=== PATIENT | male | born 1945 | race Caucasian/White ===

== ENCOUNTER 2017-04-20 10:21 | Inpatient (IN) | payer MEDICAID, MEDICARE, OTHER ==
[2017-04-19 14:39] VITALS: BMI 28.0
[~2017-04-20] VITALS: Ht 172.7 cm; Wt 89.0 kg
[2017-04-20] VITALS (18 sets, daily range): BP systolic 95–135; BP diastolic 45–71; PULSE 64–86; RESP 13–20; Ht 172.7 cm; Wt 89.0 kg
[~2017-04-20 10:21] MED LIST: CEFTRIAXONE 1 GM/NS 50 ML IVPB SCH; EPHEDrine SULFATE 50 MG/5 ML SYG ONE; GLYCOPYRROLATE 0.4 MG INJ ONE
[2017-04-20] MEDS ORDERED: ATOR10TA65 PO (11:26)
[2017-04-20] MEDS ORDERED: GLIP5TAB13 PO (11:26)
[2017-04-20] MEDS ORDERED: AMLO-147 PO (11:26)
[2017-04-20] MEDS ORDERED: SITA100T8 PO (11:26)
[2017-04-20] MEDS ORDERED: PANT40TA3 PO (11:26)
[2017-04-20] MEDS ORDERED: TAMS0.4C2 PO (11:26)
[2017-04-20] MEDS ORDERED: ASPI81TA3 PO (11:26)
[2017-04-20] MEDS ORDERED: LISI40TA9 PO (11:26)
[2017-04-20] MEDS ORDERED: ATEN-51 PO (11:26)
--- NOTE | 2017-04-20 12:11 | HPN ---
Date/Time of Note Date/Time of Note DATE: 04/20/17 TIME: 12:11 Interval H&P Admission Note Pt. seen H&P reviewed: No system changes GHAZALA ARIAS MD Apr 20, 2017 12:11
[2017-04-20] MEDS ORDERED: PROPOFOL 20 ML ONE (12:15)
[2017-04-20] MEDS ORDERED: LIDOCAINE 2% (SDV) 5 ML INJ ONE (12:15)
[2017-04-20] MEDS ORDERED: MIDAZOLAM 1 MG/ML 2 ML INJ ONE (12:16)
[2017-04-20] MEDS ORDERED: FENTAnyl 50 MCG/ML VIAL ONE (12:16)
[2017-04-20] MEDS ORDERED: DEXAMETHASONE 4 MG/ML 1 ML INJ ONE (12:34)
[2017-04-20] MEDS ORDERED: METOCLOPRAMIDE 10 MG INJ ONE (12:34)
[2017-04-20] MEDS ORDERED: ONDANSETRON 4 MG INJ ONE (12:34)
[2017-04-20] MEDS ORDERED: FAMOTIDINE 20 MG INJ ONE (12:34)
[2017-04-20] MEDS ORDERED: VASOPRESSIN 20 UNITS INJ ONE (12:46)
[2017-04-20] MEDS ORDERED: DIPHENHYDRAMINE 50 MG INJ IV PRN (13:30)
[2017-04-20] MEDS ORDERED: FENTAnyl 50 MCG/ML VIAL IV PRN ×3 (13:30)
[2017-04-20] MEDS ORDERED: OXYCODONE/ACETAMINOPHEN (5/325) TAB PO PRN ×2 (13:30)
[2017-04-20] MEDS ORDERED: MEPERIDINE 25 MG INJ IV PRN (13:30)
[2017-04-20] MEDS ORDERED: METOCLOPRAMIDE 10 MG INJ IV PRN (13:30)
[2017-04-20] MEDS ORDERED: LABETALOL HCL 20MG INJ IV PRN (13:30)
[2017-04-20] MEDS ORDERED: ONDANSETRON 4 MG INJ IV PRN (13:30)
--- NOTE | 2017-04-20 14:25 | OPR ---
Date/Time of Note Date/Time of Note DATE: 04/20/17 TIME: 14:20 Operative Report Procedure Date: Apr 20, 2017 Preoperative Diagnosis Benign prostatic hypertrophy with urinary retention and urinary tract infection Postoperative Diagnosis Benign prostatic hypertrophy with urinary retention and urinary tract infection. Pending pathology report Operation/Procedure Performed Transurethral resection of the prostate Surgeon see signature line Liquor Commissioner None Anesthesia Type: general Anesthesiologist: MANNIE LEE Estimated Blood Loss: 100 - 150 ml's Transfusion none Specimen Prostatic tissue Grafts/Implants none Tubes/Drains 24 Colombian three-way Hankins catheter Complications none Pt Condition Post Procedure: stable Disposition: PACU Indications Urinary retention, benign prostatic hypertrophy with obstruction and urinary tract infection Procedure Description The patient was brought to the operating room general anesthesia was induced. Timeout was done the patient was identified by his name birthdate and the procedure. The patient was given 1 g of ceftriaxone IV at the start of the procedure. The genital area was then prepped and draped in the usual sterile manner. cystoscopy was done was a 22 Colombian cystoscope and it showed prostatic enlargement with obstruction, the bladder was trabeculated and had a lot of cellular and diverticular formations. there was no bladder tumors or stones. The cystoscope was then removed and the urethra was dilated with a Margarito dilators up to #30 Colombian. The 26 Colombian bipolar resectoscope sheath was then introduced under direct vision through the penile urethra all the way to the bladder. Then the resection of the prostate was started ,first the median lobe was resected then the right lateral lobe then the left lateral lobe and finally the anterior lobe as well as apical tissue. All the bleeders were electrocoagulated, all the prostatic chips were evacuated, good hemostasis was obtained. The ureteral orifices as well as external sphincter were intact and safeguarded during the whole procedure. At the end of the procedure the resectoscope was removed and #24 Colombian three-way Hankins catheter was inserted into the bladder the balloon was inflated with 60 mL of sterile water the catheter was connected to a drainage bag and continuous bladder irrigation was started in the operating room with normal saline. The patient was transferred to the recovery room in stable and satisfactory condition. GHAZALA ARIAS MD Apr 20, 2017 14:25
--- NOTE | 2017-04-20 16:03 | CONS ---
Date/Time of Note Date/Time of Note DATE: 04/20/17 TIME: 15:57 Assessment/Plan Assessment/Plan Chief Complaint/Hosp Course 71 yo M present for elective TURP secondary to BPH with MDR Ecoli UTI Problems: Additional Assessment/Plan 1. Urinary tract infection - Patient noted to have MDR Ecoli UTI on urine cultures obtained as outpatient at Dr. Camarena's office - Sensitive to Ceftriaxone and will need to continue Ceftriaxone 1gm q24hr for 7 days. Will consult CM to arrange for HH and IV antibiotics - Will need to place a midline prior to discharge - Denies any symptoms at this time 2. HTN - stable - home medications resumed 3. DM - continue glipizide - resume Januvia upon discharge - ISS and accuchecks 4. BPH s/p TURP - management per Primary team 5. GERD - continue on PPI 6. Disposition - CM consulted to arrange for HH for IV antibiotics Thank you for this consultation. Please contact with any questions Consultation Date/Type/Reason Admit Date/Time Apr 20, 2017 at 10:21 Date of Consultation: Apr 20, 2017 Reason for Consultation medication management Hx of Present Illness 71 yo M with pMH HT, DM, HLD, BPH, and GERD presented for elective TURP secondary to BPH. Patient was found to have MDR Ecoli sensitive to Ceftriaxone and Imipenem on urine cultures performed as an outpatient at Dr. Camarena's office. Medicine consultation was placed for assistance setting up IV antibiotics as an outpatient. Patient was interviewed in the recovery room and denies any chest pain, shortness of breath, nausea, vomiting. abdominal pain, blood in urine, or rectal pain. All 12 systems reviewed and pertinent positives as per HPI. all others negative Constitutional: No chills, No diaphoresis, No febrile Eyes: No discharge, No redness ENT: No congestion, No discharge Respiratory: No cough, No shortness of breath, No sputum, No wheezing Cardiovascular: No chest pain, No edema, No lightheadedness, No palpitations Gastrointestinal: No constipation, No diarrhea, No nausea, No pain, No vomiting Genitourinary: No bleeding, No flank pain, No hematuria Musculoskeletal: No back pain, No swelling Skin: No erythema, No pruritis, No rash Neurologic: No confusion, No focal-weakness, No headache Endocrine: no complaints Lymphatic: no complaints Psychological: nl mood/affect Immunologic: no complaints Past Medical History Medical History: diabetes, GERD, high cholesterol, hypertension, other (BPH) Past Surgical History Past Surgical Hx: other (TURP, neck tumor ) Family History Significant Family History: no pertinent family hx Social History Alcohol Use: none Smoking Status: Former smoker Drug Use: none Exam/Review of Systems Vital Signs Vitals Vital Signs Date Time Temp Pulse Resp B/P Pulse Ox O2 Delivery O2 Flow Rate FiO2 04/20/17 14:59 78 14 107/45 95 Nasal Cannula 4.0 04/20/17 14:16 97.9 Exam Constitutional: alert, oriented, well developed, No distress Psych: nl mood/affect Head: atraumatic, normocephalic Eyes: EOMI, PERRL, nl sclera ENMT: mucosa pink and moist Neck: non-tender, supple Respiratory: clear to auscultation, No crackles/rales, No diminished breath sounds, No labored breathing, No wheezing Cardiovascular: regular rate and rhythm, No edema, No irregular rhythm, No murmurs/extra sounds, No systolic murmur Gastrointestinal: bowel sounds, non-tender, soft, No distended, No rebound or guarding Genitourinary - Male: No discharge Musculoskeletal: nl extremities to inspection Extremities: normal pulses 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: 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, nl mental status, nl speech Skin: nl turgor Lymph: nl lymph nodes Results Results 24 hrs Laboratory Tests Test 04/20/17 10:59 Bedside Glucose 98 Medications Medications Current Medications Dextrose/Sodium Chloride 1,000 ml @ 50 mls/hr Q20H IV ; Start 04/20/17 at 14: 13 Ceftriaxone Sodium (Rocephin) 50 ml @ 100 mls/hr Q24H IVPB ; Start 04/21/17 at 12:30 Amlodipine Besylate (Norvasc) 10 mg DAILY PO ; Start 04/21/17 at 09:00; Status UNV Atenolol (Tenormin) 25 mg DAILY PO ; Start 04/21/17 at 09:00; Status UNV Atorvastatin Calcium (Lipitor) 10 mg QHS PO ; Start 04/20/17 at 21:00; Status UNV Glipizide (Glucotrol) 5 mg DAILY PO ; Start 04/21/17 at 09:00; Status UNV Lisinopril (Zestril) 40 mg DAILY PO ; Start 04/21/17 at 09:00; Status UNV Pantoprazole (Protonix Tab) 40 mg DAILY PO ; Start 04/21/17 at 09:00; Status UNV Tamsulosin HCl (Flomax) 0.4 mg DAILY PO ; Start 04/21/17 at 09:00; Status UNV Procedures Procedures s/p STEPHANIE BAPTISTE MD Apr 20, 2017 16:03
[2017-04-20] MEDS: DEXTROSE 5%-0.45% NACL 1,000 ML IV SCH (16:59)
[2017-04-20] MEDS ORDERED: DEXTROSE 50% 50 ML SYRINGE IV PRN ×2 (17:00)
[2017-04-20] MEDS ORDERED: GLUCOSE GEL 15 GRAM TUBE PO PRN ×2 (17:00)
[2017-04-20] MEDS ORDERED: GLUCOSE GEL 15 GRAM TUBE BUCCAL PRN (17:00)
[2017-04-20] MEDS ORDERED: GLUCAGON 1 MG INJ IM PRN (17:00)
[2017-04-20] MEDS: INSULIN ASPART [NOVOLOG] 3 ML PEN SC SCH ×2 (17:59→21:00)
[2017-04-20] MEDS ORDERED: ATORVASTATIN 10 MG TAB PO SCH (21:00)
[2017-04-20] MEDS ORDERED: TAMSULOSIN (SR) 0.4 MG CAP PO SCH (21:00)
[2017-04-21 00:31] VITALS: BP 119/75; RESP 19
[2017-04-21 05:00] VITALS: BP 129/67; PULSE 74; RESP 18
[2017-04-21 05:30] LABS: BASOPHILS % 0.2 % (0.0-2.0); EOSINOPHILS % 0.1 % (0.0-7.0); HEMATOCRIT 29.4 % (42.0-52.0); HEMOGLOBIN 9.7 g/dl (14.0-18.0); LYMPHOCYTES # 0.9 10^3/ul (0.8-2.9); LYMPHOCYTES % 8.1 % (15.0-51.0); MEAN CORPUSCULAR VOLUME 84.7 fl (82.0-101.0); MEAN PLATELET VOLUME 10.3 fl (7.4-10.4); MONOCYTE # 0.9 10^3/ul (0.3-0.9); MONOCYTES % 7.7 % (0.0-11.0); NEUTROPHIL # 9.4 10^3/ul (1.6-7.5); NEUTROPHILS % 83.4 % (39.0-77.0); PLATELET COUNT 254 10^3/UL (140-415); RED BLOOD COUNT 3.47 10^6/ul (4.70-6.10); RED CELL DISTRIBUTION WIDTH 14.2 % (11.5-14.5); WHITE BLOOD COUNT 11.3 10^3/ul (4.8-10.8)
[2017-04-21] MEDS ORDERED: PANTOPRAZOLE (EC) 40 MG TAB PO SCH (06:00)
[2017-04-21] MEDS: INSULIN ASPART [NOVOLOG] 3 ML PEN SC SCH ×2 (07:50→11:40)
[2017-04-21] MEDS ORDERED: MAGNESIUM HYDROXIDE 30ML CUP PO PRN (08:00)
[2017-04-21 08:08] VITALS: BP 112/58; RESP 18
--- NOTE | 2017-04-21 08:54 | CONS ---
Date/Time of Note Date/Time of Note DATE: 04/21/17 TIME: 08:53 Assessment/Plan Assessment/Plan Chief Complaint/Hosp Course 71 yo M present for elective TURP secondary to BPH with MDR Ecoli UTI Problems: Additional Assessment/Plan 1. Urinary tract infection - Spoke with CM and will work on arranging HH for IV antibiotics. If able to arrange for tomorrow, will be stable for discharge after dose of antibiotics today - Patient noted to have MDR Ecoli UTI on urine cultures obtained as outpatient at Dr. Camarena's office - Sensitive to Ceftriaxone and will need to continue Ceftriaxone 1gm q24hr for 6 more days. - Will need to place a midline prior to discharge - Denies any symptoms at this time 2. HTN - stable - continue home medications 3. DM - well controlled - continue glipizide - resume Januvia upon discharge - ISS and accuchecks 4. BPH s/p TURP - management per Primary team 5. GERD - continue on PPI 6. Disposition - Spoke with daughter at bedside about plan - CM working on HH for IV antibiotics - Will have midline placed when able by ED since will only need short term IV therapy Consultation Date/Type/Reason Admit Date/Time Apr 20, 2017 at 10:21 Initial Consult Date 04/20/17 Reason for Consultation medication management Exam/Review of Systems Vital Signs Vitals Vital Signs Date Time Temp Pulse Resp B/P Pulse Ox O2 Delivery O2 Flow Rate FiO2 04/21/17 08:08 98.1 72 18 112/58 95 04/21/17 05:00 Nasal Cannula 2.0 Intake and Output 04/20/17 04/20/17 04/21/17 15:00 23:00 07:00 Intake Total 1300 ml 3370 ml 05827 ml Output Total 50 ml 2100 ml 750 ml Balance 1250 ml 1270 ml 40348 ml Exam Constitutional: alert, oriented, well developed, No distress Neck: non-tender, supple Respiratory: clear to auscultation, No crackles/rales, No diminished breath sounds, No labored breathing, No wheezing Cardiovascular: regular rate and rhythm, No edema, No irregular rhythm, No murmurs/extra sounds, No systolic murmur Gastrointestinal: bowel sounds, non-tender, soft, No distended, No rebound or guarding Musculoskeletal: nl extremities to inspection Extremities: normal pulses 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: 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 intact, nl mental status, nl speech Results Result Diagram: 04/21/17 0432 Results 24 hrs Laboratory Tests Test 04/20/17 10:59 04/20/17 17:45 04/20/17 20:54 04/21/17 02:40 Bedside Glucose 98 164 253 H 144 Test 04/21/17 04:32 White Blood Count 11.3 H Red Blood Count 3.47 L Hemoglobin 9.7 L Hematocrit 29.4 L Mean Corpuscular Volume 84.7 Mean Corpuscular Hemoglobin 28.0 L Mean Corpuscular Hemoglobin Concent 33.0 Red Cell Distribution Width 14.2 Platelet Count 254 Mean Platelet Volume 10.3 Neutrophils % 83.4 H Lymphocytes % 8.1 L Monocytes % 7.7 Eosinophils % 0.1 Basophils % 0.2 Nucleated Red Blood Cells % 0.0 Neutrophils # 9.4 H Lymphocytes # 0.9 Monocytes # 0.9 Eosinophils # 0.0 Basophils # 0.0 Nucleated Red Blood Cells # 0.0 Medications Medications Current Medications Dextrose/Sodium Chloride 1,000 ml @ 50 mls/hr Q20H IV Last administered on 16:59; Admin Dose 50 MLS/HR; Start 04/20/17 at 14:13 Ceftriaxone Sodium (Rocephin) 50 ml @ 100 mls/hr Q24H IVPB ; Start 04/21/17 at 12:30 Amlodipine Besylate (Norvasc) 10 mg DAILY PO Last administered on 04/21/17 08 :31; Admin Dose 10 MG; Start 04/21/17 at 09:00 Atenolol (Tenormin) 25 mg DAILY PO Last administered on 04/21/17 08:31; Admin Dose 25 MG; Start 04/21/17 at 09:00 Atorvastatin Calcium (Lipitor) 10 mg QHS PO Last administered on 04/20/17 20: 58; Admin Dose 10 MG; Start 04/20/17 at 21:00 Lisinopril (Zestril) 40 mg DAILY PO Last administered on 04/21/17 08:32; Admin Dose 40 MG; Start 04/21/17 at 09:00 Pantoprazole (Protonix Tab) 40 mg DAILY@06 PO Last administered on 04/21/17 05:48; Admin Dose 40 MG; Start 04/21/17 at 06:00 Tamsulosin HCl (Flomax) 0.4 mg HS PO Last administered on 04/20/17 20:58; Admin Dose 0.4 MG; Start 04/20/17 at 21:00 Miscellaneous Information 1 ea NOTE XX ; Start 04/20/17 at 17:00 Glucose (Glutose) 15 gm Q15M PRN PO DECREASED GLUCOSE; Start 04/20/17 at 17:00 Glucose (Glutose) 22.5 gm Q15M PRN PO DECREASED GLUCOSE; Start 04/20/17 at 17: 00 Dextrose (D50w Syringe) 25 ml Q15M PRN IV DECREASED GLUCOSE; Start 04/20/17 at 17:00 Dextrose (D50w Syringe) 50 ml Q15M PRN IV DECREASED GLUCOSE; Start 04/20/17 at 17:00 Glucagon (Glucagen) 1 mg Q15M PRN IM DECREASED GLUCOSE; Start 04/20/17 at 17: 00 Glucose (Glutose) 15 gm Q15M PRN BUCCAL DECREASED GLUCOSE; Start 04/20/17 at 17:00 Ferrous Sulfate (Ferrous Sulfate (Ec)) 325 mg BID PO Last administered on 04/21 08:31; Admin Dose 325 MG; Start 04/21/17 at 09:00 Docusate Sodium (Colace) 100 mg BID PO Last administered on 04/21/17 08:31; Admin Dose 100 MG; Start 04/21/17 at 09:00 Magnesium Hydroxide (Milk Of Mag) 30 ml DAILY PRN PO CONSTIPATION; Start 04/21 at 08:00 STEPHANIE LEVY MD Apr 21, 2017 08:54
[2017-04-21] MEDS ORDERED: LISINOPRIL 20 MG TAB PO SCH (09:00)
[2017-04-21] MEDS ORDERED: FERROUS SULFATE (EC) 325 MG TAB PO SCH (09:00)
[2017-04-21] MEDS ORDERED: glipiZIDE 5 MG TAB PO SCH (09:00)
[2017-04-21] MEDS ORDERED: CEFTRIAXONE 1 GM INJ IVPB SCH (09:00)
[2017-04-21] MEDS ORDERED: DOCUSATE SODIUM 100 MG CAP PO SCH (09:00)
[2017-04-21] MEDS ORDERED: ATENOLOL 25 MG TAB PO SCH (09:00)
[2017-04-21] MEDS ORDERED: AMLODIPINE 10 MG TAB PO SCH (09:00)
[2017-04-21 12:02] LABS: CALCIUM 8.3 mg/dl (8.4-10.2); CREATININE 1.01 mg/dl (0.61-1.24); POTASSIUM 3.6 mmol/L (3.5-5.1)
[2017-04-21] MEDS: DEXTROSE 5%-0.45% NACL 1,000 ML IV SCH (12:02)
[2017-04-21] MEDS ORDERED: CEFTRIAXONE 1 GM/NS 50 ML IVPB SCH (12:30)
[2017-04-21 15:26] VITALS: BP 116/55; RESP 20
--- NOTE | 2017-04-21 15:26 | CONS ---
Date/Time of Note Date/Time of Note DATE: 04/21/17 TIME: 15:22 Consult Date/Type/Reason Admit Date/Time Apr 20, 2017 at 10:21 Initial Consult Date 04/20/17 Type of Consultation: Urology Reason for Consultation Status post transurethral resection of the prostate Ordering Provider: GHAZALA ARIAS MD Subjective Patient is alert awake and comfortable denies having any pain. Objective Vital Signs Date Time Temp Pulse Resp B/P Pulse Ox O2 Delivery O2 Flow Rate FiO2 04/21/17 08:08 98.1 72 18 112/58 95 04/21/17 05:00 Nasal Cannula 2.0 Intake and Output 04/20/17 04/20/17 04/21/17 15:00 23:00 07:00 Intake Total 1300 ml 3370 ml 11477 ml Output Total 50 ml 2100 ml 750 ml Balance 1250 ml 1270 ml 46309 ml Exam Patient is afebrile ,the abdomen is soft there is no abdominal mass palpable. Hankins catheter is draining clear urine was a bladder irrigation. We shall stop the irrigation and plug the irrigation port was a catheter plug. If arrangements could be made to give him the ceftriaxone IV at home then he could go home today otherwise he will stay in the hospital till the arrangement is made for home IV antibiotic Results/Medications Result Diagram: 04/21/17 0432 04/21/17 1107 Results 24 hrs Laboratory Tests Test 04/20/17 17:45 04/20/17 20:54 04/21/17 02:40 04/21/17 04:32 Bedside Glucose 164 253 H 144 White Blood Count 11.3 H Red Blood Count 3.47 L Hemoglobin 9.7 L Hematocrit 29.4 L Mean Corpuscular Volume 84.7 Mean Corpuscular Hemoglobin 28.0 L Mean Corpuscular Hemoglobin Concent 33.0 Red Cell Distribution Width 14.2 Platelet Count 254 Mean Platelet Volume 10.3 Neutrophils % 83.4 H Lymphocytes % 8.1 L Monocytes % 7.7 Eosinophils % 0.1 Basophils % 0.2 Nucleated Red Blood Cells % 0.0 Neutrophils # 9.4 H Lymphocytes # 0.9 Monocytes # 0.9 Eosinophils # 0.0 Basophils # 0.0 Nucleated Red Blood Cells # 0.0 Test 04/21/17 08:37 04/21/17 11:07 04/21/17 12:50 Bedside Glucose 113 129 Sodium Level 141 Potassium Level 3.6 Chloride Level 107 Carbon Dioxide Level 24 Anion Gap 14 Blood Urea Nitrogen 11 Creatinine 1.01 Glucose Level 191 Calcium Level 8.3 L Medications Current Medications Dextrose/Sodium Chloride 1,000 ml @ 50 mls/hr Q20H IV Last administered on 12:02; Admin Dose 50 MLS/HR; Start 04/20/17 at 14:13 Ceftriaxone Sodium (Rocephin) 50 ml @ 100 mls/hr Q24H IVPB Last administered on 04/21/17 13:02; Admin Dose 100 MLS/HR; Start 04/21/17 at 12:30 Amlodipine Besylate (Norvasc) 10 mg DAILY PO Last administered on 04/21/17 08 :31; Admin Dose 10 MG; Start 04/21/17 at 09:00 Atenolol (Tenormin) 25 mg DAILY PO Last administered on 04/21/17 08:31; Admin Dose 25 MG; Start 04/21/17 at 09:00 Atorvastatin Calcium (Lipitor) 10 mg QHS PO Last administered on 04/20/17 20: 58; Admin Dose 10 MG; Start 04/20/17 at 21:00 Lisinopril (Zestril) 40 mg DAILY PO Last administered on 04/21/17 08:32; Admin Dose 40 MG; Start 04/21/17 at 09:00 Pantoprazole (Protonix Tab) 40 mg DAILY@06 PO Last administered on 04/21/17 05:48; Admin Dose 40 MG; Start 04/21/17 at 06:00 Tamsulosin HCl (Flomax) 0.4 mg HS PO Last administered on 04/20/17 20:58; Admin Dose 0.4 MG; Start 04/20/17 at 21:00 Miscellaneous Information 1 ea NOTE XX ; Start 04/20/17 at 17:00 Glucose (Glutose) 15 gm Q15M PRN PO DECREASED GLUCOSE; Start 04/20/17 at 17:00 Glucose (Glutose) 22.5 gm Q15M PRN PO DECREASED GLUCOSE; Start 04/20/17 at 17: 00 Dextrose (D50w Syringe) 25 ml Q15M PRN IV DECREASED GLUCOSE; Start 04/20/17 at 17:00 Dextrose (D50w Syringe) 50 ml Q15M PRN IV DECREASED GLUCOSE; Start 04/20/17 at 17:00 Glucagon (Glucagen) 1 mg Q15M PRN IM DECREASED GLUCOSE; Start 04/20/17 at 17: 00 Glucose (Glutose) 15 gm Q15M PRN BUCCAL DECREASED GLUCOSE; Start 04/20/17 at 17:00 Ferrous Sulfate (Ferrous Sulfate (Ec)) 325 mg BID PO Last administered on 04/21 08:31; Admin Dose 325 MG; Start 04/21/17 at 09:00 Docusate Sodium (Colace) 100 mg BID PO Last administered on 04/21/17 08:31; Admin Dose 100 MG; Start 04/21/17 at 09:00 Magnesium Hydroxide (Milk Of Mag) 30 ml DAILY PRN PO CONSTIPATION; Start 04/21 at 08:00 GHAZALA ARIAS MD Apr 21, 2017 15:26
--- NOTE | 2017-04-21 15:30 | PDOCDIS ---
Discharge Instructions DIAGNOSIS Discharge Diagnosis 1. Urinary tract infection 2. HTN 3. DM 4. BPH s/p TURP 5. GERD CONDITION Patient Condition: Stable HOME CARE INSTRUCTIONS: Diet Instructions: RegularSpecial Diet: regular ACTIVITY: Activity Restrictions: Slowly Increase Activity Rest between Activity Avoid heavy lifting Avoid Heavy Housework Bathing Restrictions: Shower FOLLOW UP/APPOINTMENTS Follow-up Plan 1. Follow up with Dr. Camarena as scheduled on Wednesday 04/25 for garcía removal 2. Do not take your aspirin until seen by Dr. Camarena 3. Continue on IV antibiotics until 04/26 4. If symptoms worsening, return to the ED 5. Keep garcía in place REFERRALS Other Referrals Gary Camarena MD Specialty: Urology Office Address [address] [place] [address] Office STEPHANIE LEVY MD Apr 21, 2017 15:30
--- NOTE | 2017-04-21 18:32 | DS ---
Date/Time of Note Date/Time of Note DATE: 04/21/17 TIME: 18:29 Discharge Summary Admission/Discharge Info Admit Date/Time Apr 20, 2017 at 10:21 Discharge Date/Time Apr 21, 2017 at 18:10 Discharge Diagnosis 1. Urinary tract infection 2. HTN 3. DM 4. BPH s/p TURP 5. GERD Patient Condition: Stable Consults Medicine Procedures TURP Hx of Present Illness 71 yo M with pMH HT, DM, HLD, BPH, and GERD presented for elective TURP secondary to BPH. Patient was found to have MDR Ecoli sensitive to Ceftriaxone and Imipenem on urine cultures performed as an outpatient at Dr. Camarena's office. Medicine consultation was placed for assistance setting up IV antibiotics as an outpatient. Patient was interviewed in the recovery room and denies any chest pain, shortness of breath, nausea, vomiting. abdominal pain, blood in urine, or rectal pain. Hospital Course Patient was admitted following TURP procedure and arrangements were made for IV antibiotics for MDR Ecoli UTI found on urine cultures performed as outpatient. Patient did not complain of any pain during hospitalization and urine remained clear. Case management was on board for assistance with arranging IV antibiotics for 5 more days and patient was discharged home in stable condition with instructions to follow up with Dr. Camarena in his office on Sunday for garcía removal. He was also instructed not to resume his aspirin until okayed by Urology. Home Meds Reported Medications Atenolol* (Atenolol*) 25 Mg Tablet, 25 MG PO DAILY, #30 TAB 04/20/17 Amlodipine Besylate* (Amlodipine Besylate*) 10 Mg Tablet, 10 MG PO DAILY, #30 TAB 04/20/17 Sitagliptin* (Januvia*) 100 Mg Tablet, 100 MG PO DAILY, #30 TAB 04/20/17 Lisinopril* (Lisinopril*) 40 Mg Tablet, 40 MG PO DAILY, #30 TAB 04/20/17 Atorvastatin Calcium (Atorvastatin Calcium) 10 Mg Tablet, 10 MG PO QHS, #30 TAB 04/20/17 Tamsulosin Hcl* (Tamsulosin Hcl*) 0.4 Mg Cap.er.24h, 0.4 MG PO DAILY, CAP 04/20/17 Pantoprazole* (Protonix*) 40 Mg Tablet.dr, 40 MG PO DAILY, TAB 04/20/17 Glipizide* (Glipizide*) 5 Mg Tablet, 5 MG PO DAILY, TAB 04/20/17 Discontinued Reported Medications Aspirin* (Aspirin* Chew) 81 Mg Tab.chew, 81 MG PO DAILY, TAB.CHEW 04/20/17 Follow-up Plan 1. Follow up with Dr. Camarena as scheduled on Wednesday 04/25 for garcía removal 2. Do not take your aspirin until seen by Dr. Camarena 3. Continue on IV antibiotics until 04/26 4. If symptoms worsening, return to the ED 5. Keep garcía in place Primary Care Provider Not On Staff Doctor Time spent on discharge: > 30 minutes Pending Labs Laboratory Tests Test 04/20/17 20:54 04/21/17 02:40 04/21/17 04:32 04/21/17 08:37 Bedside Glucose 253mg/dL (70-220) 144mg/dL (70-220) 113mg/dL (70-220) White Blood Count 11.310^3/ul (4.8-10.8) Red Blood Count 3.4710^6/ul (4.70-6.10) Hemoglobin 9.7g/dl (14.0-18.0) Hematocrit 29.4% (42.0-52.0) Mean Corpuscular Volume 84.7fl (82.0-101.0) Mean Corpuscular Hemoglobin 28.0pg (29.0-33.0) Mean Corpuscular Hemoglobin Concent 33.0g/dl (32.0-37.0) Red Cell Distribution Width 14.2% (11.5-14.5) Platelet Count 07878^3/UL (140-415) Mean Platelet Volume 10.3fl (7.4-10.4) Neutrophils % 83.4% (39.0-77.0) Lymphocytes % 8.1% (15.0-51.0) Monocytes % 7.7% (0.0-11.0) Eosinophils % 0.1% (0.0-7.0) Basophils % 0.2% (0.0-2.0) Nucleated Red Blood Cells % 0.0/100WBC (0.0-0.0) Neutrophils # 9.410^3/ul (1.6-7.5) Lymphocytes # 0.910^3/ul (0.8-2.9) Monocytes # 0.910^3/ul (0.3-0.9) Eosinophils # 0.010^3/ul (0.0-0.5) Basophils # 0.010^3/ul (0.0-0.1) Nucleated Red Blood Cells # 0.010^3/ul (0.0-0.0) Test 04/21/17 11:07 04/21/17 12:50 Sodium Level 141mmol/L (135-144) Potassium Level 3.6mmol/L (3.5-5.1) Chloride Level 107mmol/L (97-110) Carbon Dioxide Level 24mmol/L (21-31) Anion Gap 14 (8-16) Blood Urea Nitrogen 11mg/dl (7-20) Creatinine 1.01mg/dl (0.61-1.24) Glucose Level 191mg/dl (70-220) Calcium Level 8.3mg/dl (8.4-10.2) Bedside Glucose 129mg/dL (70-220) STEPHANIE LEVY MD Apr 21, 2017 18:32
== END 2017-04-21 18:10 | disposition home health service (06) | DRG 713 ==
LOC: REC 10:21 → EDSTATUS 12:30 → MS1 16:15
PROVIDERS: ADMIT Urology; ATTEND Urology
PROC: 0VT08ZZ Resection of Prostate, Via Natural or Artificial Opening Endoscopic (ICD-10-PCS; principal; 2017-04-20 12:30)
DX: N40.1 Benign prostatic hyperplasia with lower urinary tract symptoms (principal); N39.0 Urinary tract infection, site not specified; E11.9 Type 2 diabetes mellitus without complications; I10 Essential (primary) hypertension; B96.20 Unspecified Escherichia coli [E. coli] as the cause of diseases classified elsewhere; R33.8 Other retention of urine; Z16.24 Resistance to multiple antibiotics; K21.9 Gastro-esophageal reflux disease without esophagitis
CPT/HCPCS: 80048; 82962; 85025; 88305; J0696; J1100; J1815; J2250; J2405; J2765; J3010; J7042